=== PATIENT | female | born 1970 | race Caucasian/White ===

== ENCOUNTER 2022-12-24 09:31 | Day surgery (SDC) | payer OTHER ==
[~2022-12-24] VITALS: Ht 154.9 cm; Wt 69.4 kg
[2022-12-24] MEDS ORDERED: diphenhydrAMINE 50 MG/ML VIAL ONE (11:16)
[2022-12-24] MEDS ORDERED: fentaNYL citrate 0.05 MG/ML VIAL ONE (11:16)
[2022-12-24] MEDS ORDERED: MIDAZOLAM 5 MG/5 ML VIAL ONE (11:16)
[2022-12-24] MEDS ORDERED: MIDAZOLAM 2 MG/2 ML VIAL ONE (12:10)
[2022-12-24] MEDS ORDERED: MIDAZOLAM 5 MG/5 ML VIAL IV ONE (13:25)
[2022-12-24] MEDS ORDERED: diphenhydrAMINE 50 MG/ML VIAL IVP ONE (13:25)
[2022-12-24] MEDS ORDERED: fentaNYL citrate 0.05 MG/ML VIAL IVP ONE (13:25)
== END 2022-12-24 13:36 | disposition home or self-care (01) ==
LOC: MDS 09:31 → MMU 09:32 → MDS 13:36
PROVIDERS: ATTEND Internal Medicine Gastroenterology
DX: Z12.11 Encounter for screening for malignant neoplasm of colon (principal); Z90.710 Acquired absence of both cervix and uterus; Z90.49 Acquired absence of other specified parts of digestive tract
CPT/HCPCS: 45378; J1200; J2250; J3010